=== PATIENT | female | born 1950 | race Two or more races ===

== ENCOUNTER 2020-06-22 11:00 | Inpatient (IN) | payer OTHER ==
[~2020-06-22] VITALS: Ht 152.4 cm; Wt 108.9 kg
[~2020-06-22 11:00] MED LIST: NAPROXEN SODIU550 M1 PO
[2020-06-22] MEDS ORDERED: VASOTEC20 M1 PO (13:15)
[2020-06-22] MEDS ORDERED: LEVO-T100 MCG PO (13:16)
[2020-08-05] MEDS ORDERED: OXYC1TAB9 PO (07:44)
== END 2020-08-05 11:19 | disposition home or self-care (01) | DRG 743 ==
LOC: SURH 06-29 07:00 → EDSTATUS 06-29 11:00 → SURH 06-29 11:00 → O/R 08-03 07:38 → OB/GYN 08-03 07:38
PROVIDERS: ADMIT Obstetrics & Gynecology Gynecology; ATTEND Obstetrics & Gynecology Gynecology
PROC: 0UJD4ZZ Inspection of Uterus and Cervix, Percutaneous Endoscopic Approach (ICD-10-PCS; 2020-08-03)
PROC: 0UT20ZZ Resection of Bilateral Ovaries, Open Approach (ICD-10-PCS; 2020-08-03)
PROC: 0UT70ZZ Resection of Bilateral Fallopian Tubes, Open Approach (ICD-10-PCS; 2020-08-03)
PROC: 0UT90ZZ Resection of Uterus, Open Approach (ICD-10-PCS; principal; 2020-08-03 10:15)
DX: N80.0 Endometriosis of uterus (principal); N72 Inflammatory disease of cervix uteri; N83.332 Acquired atrophy of left ovary and fallopian tube; Z53.31 Laparoscopic surgical procedure converted to open procedure; Z20.822 Contact with and (suspected) exposure to COVID-19

== ENCOUNTER 2020-07-27 12:15 | Outpatient (CLI) | payer OTHER ==
[~2020-07-27 12:15] MED LIST changes: +LEVO-T100 MCG PO; +VASOTEC20 M1 PO
== END 2020-07-27 12:19 | disposition home or self-care (01) ==
LOC: LAB 12:15
PROVIDERS: ATTEND Obstetrics & Gynecology Gynecology
DX: Z03.818 Encounter for observation for suspected exposure to other biological agents ruled out (principal)